=== PATIENT | female | born 1980 | race Caucasian/White ===

== ENCOUNTER 2022-11-20 14:52 | Emergency (ER) | payer OTHER, SELFPAY ==
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
[2022-11-20 15:00] VITALS: BP 134/88; PULSE 78; O2SAT 98
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
[2022-11-20 15:29] VITALS: BP 159/93; PULSE 77; RESP 18; TEMP 36.2; O2SAT 96; BMI 33.0
--- NOTE | 2022-11-20 15:35 | ECG_ITS ---
Test Reason : SYNCOPE Blood Pressure : / mmHG Vent. Rate : 073 BPM Atrial Rate : 073 BPM P-R Int : 156 ms QRS Dur : 084 ms QT Int : 396 ms P-R-T Axes : 075 055 049 degrees QTc Int : 436 ms Normal sinus rhythm Normal ECG No previous ECGs available Referred By: Stephanie Jeter Electronically Signed By:CARLOS LUGO
[2022-11-20 15:57] LABS: MANUAL DIFF FLAG NO
[2022-11-20 16:00] LABS: Basophils Absolute Auto 0.1 X10*3/uL (0.0-0.2); Basophils Percent Auto 0.8 % (0-2); Eosinophils Absolute Auto 0.3 X10*3/uL (0.0-0.4); Eosinophils Percent Auto 3.2 % (0-4); Hematocrit 44.9 % (37.0-47.0); Hemoglobin 15.1 g/dl (12.0-16.0); Imm Gran Abs Auto 0.03 X10*3/uL (0.00-0.03); Imm Gran Pct Auto 0.3 % (0.0-0.4); Lymphocytes Absolute Auto 1.7 X10*3/uL (1.2-4.9); Lymphocytes Percent Auto 18.3 % (20-40); Mean Corpuscular HGB Conc 33.6 g/dl (31.0-35.0); Mean Corpuscular Hemoglobin 31.3 pg (27.0-33.0); Mean Platelet Volume 9.7 fL (9.4-12.3); Monocytes Absolute Auto 0.4 X10*3/uL (0.1-1.2); Monocytes Percent Auto 3.9 % (2-11); Neutrophils Absolute Auto 6.7 x10*3/uL (2.0-8.3); Neutrophils Percent Auto 73.5 % (45-73); Platelet Count 288 X10*3/uL (160-400); Red Blood Count 4.83 X10*6/uL (4.20-5.50); Red Cell Distribution Width 12.1 % (11.0-16.0); White Blood Count 9.1 X10*3/uL (4.8-10.8)
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
[2022-11-20 16:17] LABS: Anion Gap 10 (12-20); Blood Urea Nitrogen 13 mg/dL (9-16); Calcium 9.2 mg/dL (8.4-10.2); Carbon Dioxide 22 mmol/L (22-29); Chloride 110 mmol/L (96-108); Creatinine Clr Calc Pharmacy 77.9; Estimated Glomerular Filt Rate > 60; Glucose Random 101 mg/dL (60-115); Potassium 4.4 mmol/L (3.3-5.1); Sodium 138 mmol/L (135-145)
[2022-11-20 16:34] LABS: Troponin-I High Sensitivity < 3.5 ng/L (<3.5-17.0)
[2022-11-20 18:32] VITALS: BP 138/77; PULSE 62; RESP 12; TEMP 36.8; O2SAT 98
--- NOTE | 2022-11-20 19:21 | PC.NURSE ---
Assumed care of pt. at 1900. Pt. resting quietly in bed at this time with significant other at bedside. Pt. requesting to urinate, however reports feeling dizzy and unsteady on feet. Provided pt. with commode and helped pt. on to urinate. Pt. reports pain 8-9/10 and sensitivity to light.
[2022-11-20] MEDS: Albuterol Sulfate (0.083%) 2.5 MG/3 ML VIAL.NEB INHALE ×3 (19:45→19:56)
[2022-11-20 19:57] VITALS: PULSE 62; RESP 12
== END 2022-11-20 20:22 | disposition home or self-care (01) ==
PROVIDERS: Nurse Practitioner Family; Emergency Provider Emergency Medicine
DX: S00.93XA Contusion of unspecified part of head, initial encounter (principal); R55 Syncope and collapse; R51.9 Headache, unspecified; M25.511 Pain in right shoulder; Y04.2XXA Assault by strike against or bumped into by another person, initial encounter; Y93.9 Activity, unspecified; Y92.009 Unspecified place in unspecified non-institutional (private) residence as the place of occurrence of the external cause; Y99.9 Unspecified external cause status; Z79.899 Other long term (current) drug therapy
CPT/HCPCS: 36415; 70450; 73030; 80048; 84484; 85025; 93005; 94640; 99284; 99285

== ENCOUNTER 2024-04-21 10:18 | Outpatient (REF) | payer MEDICAID, SELFPAY ==
[2024-04-21 14:25] LABS: MANUAL DIFF FLAG NO
[2024-04-21 14:29] LABS: Basophils Absolute Auto 0.1 X10*3/uL (0.0-0.2); Basophils Percent Auto 0.7 % (0-2); Eosinophils Absolute Auto 0.3 X10*3/uL (0.0-0.4); Hematocrit 41.6 % (37.0-47.0); Hemoglobin 13.8 g/dl (12.0-16.0); Imm Gran Abs Auto 0.04 X10*3/uL (0.00-0.03); Imm Gran Pct Auto 0.4 % (0.0-0.4); Lymphocytes Absolute Auto 1.7 X10*3/uL (1.2-4.9); Lymphocytes Percent Auto 18.1 % (20-40); Mean Corpuscular HGB Conc 33.2 g/dl (31.0-35.0); Mean Corpuscular Hemoglobin 31.7 pg (27.0-33.0); Mean Corpuscular Volume 95.6 fL (80.0-98.0); Monocytes Absolute Auto 0.6 X10*3/uL (0.1-1.2); Monocytes Percent Auto 5.8 % (2-11); Neutrophils Absolute Auto 6.8 x10*3/uL (2.0-8.3); Platelet Count 266 X10*3/uL (160-400); Red Blood Count 4.35 X10*6/uL (4.20-5.50); Red Cell Distribution Width 12.5 % (11.0-16.0); White Blood Count 9.4 X10*3/uL (4.8-10.8)
[2024-04-21 14:46] LABS: Alanine Aminotransferase 17 U/L (0-31); Alkaline Phosphatase 92 U/L (39-117); Anion Gap 11 (12-20); Aspartate Amino Transferase 16 U/L (5-31); Bilirubin Direct 0.1 mg/dL (0.0-0.5); Bilirubin Total 0.5 mg/dL (0.0-1.0); Blood Urea Nitrogen 13 mg/dL (9-16); Calcium 9.1 mg/dL (8.4-10.2); Carbon Dioxide 25 mmol/L (22-29); Chloride 106 mmol/L (96-108); Cholesterol 228 mg/dL (<200); Estimated Glomerular Filt Rate > 60; Glucose Fasting 93 mg/dL (60-99); HDL Cholesterol 37 mg/dL (>40); LDL Cholesterol Calculated 154 mg/dL (<100); Potassium 3.4 mmol/L (3.3-5.1); Sodium 139 mmol/L (135-145); Total Protein 7.2 g/dL (6.5-8.0); Triglycerides 186 mg/dL (<150)
[2024-04-21 15:08] LABS: TSH reflex Free T4 1.09 uIU/mL (0.32-4.0); Vitamin D 25-OH Total 41.3 ng/mL (>30)
[2024-04-21 15:14] LABS: Folate 6.6 ng/mL (> or = 4.0); Vitamin B12 392 pg/mL (200-900)
[2024-04-22 08:02] LABS: HBS Num1 8.37 mIU/mL (0-7.99); HIV AB/AG Nonreactive (Nonreactive); HIV Num 1 0.06 S/CO (0.00-0.99); ~HepC Num1 0.21 S/CO (0.00-0.79); ~Hepatitis C Antibody Nonreactive (Nonreactive)
[2024-04-22 11:14] LABS: HBS Num2 8.13 mIU/mL (0-7.99); HBS Num3 7.73 mIU/mL (0-7.99); ~Hepatitis B Surface Antibody GRAYZONE (Nonreactive)
[2024-04-22 17:38] LABS: CT PCR NOT DETECTED (Not Detect.); NG PCR NOT DETECTED (Not Detect.)
== END 2024-04-21 10:19 | disposition home or self-care (01) ==
LOC: HO.CHCLDS 10:18
PROVIDERS: Visit Provider Pediatrics
DX: Z00.00 Encounter for general adult medical examination without abnormal findings (principal); E55.9 Vitamin D deficiency, unspecified; Z90.49 Acquired absence of other specified parts of digestive tract
CPT/HCPCS: 36415; 80048; 80061; 80076; 82306; 82607; 82746; 84443; 85025; 86706; 86803; 87389; 87491; 87591

== ENCOUNTER 2024-10-06 16:50 | Emergency (ER) | payer MEDICAID, SELFPAY ==
--- NOTE | ~2024-10-06 | XR_ITS ---
EXAMINATION: XR CHEST CLINICAL INFORMATION: sob/cough COMPARISON: None available. TECHNIQUE: 2 views of the chest were obtained. FINDINGS: No significant abnormality is noted involving the heart, lungs, mediastinum, bony thorax or soft tissues. XR/XR chest 2V IMPRESSION: Unremarkable examination. Electronically signed by: Дмитрий Hackett DO 10/06/2024 07:25 PM [facility]
[2024-10-06 16:55] VITALS: BP 166/99; PULSE 78; O2SAT 98
--- NOTE | 2024-10-06 16:56 | ED_ITS ---
HPI - Chest Pain General Chief Complaint: Upper Respiratory Symptoms Stated Complaint: SWEETIE DISEASE, NAUSEA, PT GIVEN ZOFRAN Time Seen by Provider: 10/06/24 19:25 Source: patient Limitations: no limitations History of Present Illness ED Provider: Maty ingram PA-C HPI narrative: 44-year-old female with a history of asthma, seizure disorder, migraine, PTSD and bipolar who presents from [facility] primary care with asthma exacerbation and chest pain x1 week. Associated generalized malaise with myalgia, nasal congestion, and chest tightness. Subjective fevers. Related Data Previous Rx's ?Medication ?Instructions ?Recorded azithromycin 250 mg tablet 250 mg PO DAILY 4 days #4 tabs 10/06/24 prednisone 20 mg tablet 40 mg (2 x 20 mg) PO DAILY #8 tabs 10/06/24 Allergies Allergy/AdvReac Type Severity Reaction Status Date / Time Penicillins Allergy Hives Verified 10/06/24 17:07 Review of Systems 2 Review of Systems: Yes all other systems are reviewed and are negative Constitutional: Constitutional: Reports fever(s), Reports lethargy and Reports malaise Cardiovascular: Cardiovascular: Reports chest pain and Reports dyspnea Respiratory: Respiratory: Reports cough, Reports dyspnea and Reports wheezing Gastrointestinal: Gastrointestinal: Denies abdominal pain and Denies vomiting Allergic/Immunologic: Allergic/Immunologic: Reports wheezing PMFSH Past Medical History Attestation statement: The following information was validated with the patient. Medical History Asthma Bipolar 1 disorder Chronic post-traumatic stress disorder (PTSD) Migraines Seizure disorder Social History Social History Alcohol intake: current Alcohol intake frequency: a few times a month Alcohol type: hard liquor Substance Use Type: Marijuana Physical Exam 2 Vital Signs: Vital Signs: Last Vital Signs Temp 97.9 F 10/06/24 17:05 Pulse 81 10/06/24 17:05 Resp 18 10/06/24 17:05 BP 119/89 10/06/24 17:05 Pulse Ox 98 10/06/24 17:05 O2 Del Method Room Air 10/06/24 17:05 BMI result Body Mass Index 29.7 Const: Other: Alert, ill in appearance Orientation/consciousness: patient oriented x3 Resp: Other: Nonlabored respirations, scattered expiratory wheezes, active bronchospasm cough Cardio: Other: Normal peripheral perfusion Skin: Other: Warm dry no rash Neuro: General: patient oriented x3, no focal motor deficits and CN's II-XI intact bilaterally Psych: Other: Calm cooperative Course Course Course Narrative: This is a rapid medical exam performed by Maty Ingram PA-C. The patient is a 44-year-old female with a history of asthma, seizure disorder, migraine, PTSD and bipolar who presents from [facility] primary care with asthma exacerbation and chest pain x1 week. On exam, the patient is rhonchorous posterior davis, with the active bronchospasm cough. We will be screening basic labs, troponin, chest x-ray, viral panel and obtaining an EKG. Patient essentially was sent here for ACS rule out given concurrent chest pain. Patient received nebulized treatments prior to arrival, she feels improved, however I foresee her requiring additional treatment. The patient is stable and can return to the waiting room pending her full medical assessment. Medical Decision Making Medical Decision Making MDM Narrative: 44-year-old female with a history of asthma, seizure disorder, migraine, PTSD and bipolar who presents from [facility] primary care with asthma exacerbation and chest pain x1 week. Associated generalized malaise with myalgia, nasal congestion, and chest tightness. Subjective fevers. Problem: Asthma History: Per patient I have considered the following differential diagnoses: Asthma exacerbation, viral syndrome, bronchitis, pneumonia, ACS Plan: Patient was seen at primary care for asthma exacerbation, given concurrent chest discomfort, she was sent to the emergency room to rule out ACS. Her symptoms are not consistent with ACS, she is having chest tightness secondary to her asthma. We will be screening labs, trop, viral panel chest x- ray, EKG her symptoms are improved since receiving an updraft at her primary care's office. I have independently reviewed the following tests: Labs: No leukocytosis, not anemic, no electrolyte abnormality troponin negative, not EKG: Normal sinus rhythm, rate 80, no ischemic changes no ectopy Chest x-ray:IMPRESSION: Unremarkable examination. Lab Data 10/06/24 17:21 10/06/24 17:21 Labs: Lab Results 10/06/24 Range/Units 17:21 WBC 8.2 (4.8-10.8) X10*3/uL RBC 4.82 (4.20-5.50) X10*6/uL Hgb 15.2 (12.0-16.0) g/dl Hct 44.4 (37.0-47.0) % MCV 92.1 (80.0-98.0) fL MCH 31.5 (27.0-33.0) pg MCHC 34.2 (31.0-35.0) g/dl RDW 12.5 (11.0-16.0) % Plt Count 211 (160-400) X10*3/uL MPV 9.9 (9.4-12.3) fL Immature Gran % (Auto) 0.4 (0.0-0.4) % Neut % (Auto) 67.6 (45-73) % Lymph % (Auto) 23.1 (20-40) % [place] % (Auto) 4.5 (2-11) % Eos % (Auto) 3.7 (0-4) % Baso % (Auto) 0.7 (0-2) % Lymph # (Auto) 1.9 (1.2-4.9) X10*3/uL [place] # (Auto) 0.4 (0.1-1.2) X10*3/uL Eos # (Auto) 0.3 (0.0-0.4) X10*3/uL Baso # (Auto) 0.1 (0.0-0.2) X10*3/uL Abs Immat Gran (auto) 0.03 (0.00-0.03) X10*3/uL Absolute Neuts (auto) 5.6 (2.0-8.3) x10*3/uL Absolute Nucleated RBC 0.000 (0.0-0.012) X10*3/uL Nucleated RBC % (auto) 0.0 (0.0-0.2) /100WBC Sodium 139 (135-145) mmol/L Potassium 3.7 (3.3-5.1) mmol/L Chloride 110 H (96-108) mmol/L Carbon Dioxide 20 L (22-29) mmol/L Anion Gap 13 (12-20) BUN 10 (9-16) mg/dL Creatinine 0.78 (0.5-1.4) mg/dL Estim Creat Clear Calc 83.9 Estimated GFR > 60 Random Glucose 87 (60-115) mg/dL Calcium 9.2 (8.4-10.2) mg/dL Magnesium 2.1 (1.6-2.6) mg/dL Troponin I High Sens < 2.7 (<3.5-17.0) ng/L Beta HCG, Quant < 2 mIU/mL Influenza Type A (PCR) NEGATIVE (Negative) Influenza Type B (PCR) NEGATIVE (Negative) RSV RNA Qual (PCR) NEGATIVE (Negative) SARS-CoV-2 RNA (RT-PCR) NEGATIVE (Negative) Discharge Plan Discharge Clinical Impression: Bronchitis Patient Disposition: Home, Self-Care Instructions: Acute Bronchitis (ED) Additional Instructions: You are being treated for bronchitis. There was no pneumonia on your chest x- ray, there were no concerning changes on her EKG, all of your labs including a cardiac enzymes were normal. You were screened for flu, RSV and COVID, the viral panel was negative. Use your home breathing treatments as directed, take the steroid as directed, take the azithromycin as directed. You do not require any additional medication until tomorrow. Follow up with your primary care provider as needed. Prescriptions: New azithromycin 250 mg tablet 250 mg PO DAILY 4 Days Qty: 4 0RF Rx Instructions: start on day 2 of therapy prednisone 20 mg tablet 40 mg PO DAILY Qty: 8 0RF Print Language: Italian
--- NOTE | 2024-10-06 16:58 | ECG_ITS ---
Test Reason : UPPER RESP Blood Pressure : / mmHG Vent. Rate : 080 BPM Atrial Rate : 080 BPM P-R Int : 126 ms QRS Dur : 084 ms QT Int : 396 ms P-R-T Axes : 016 019 043 degrees QTc Int : 456 ms Normal sinus rhythm Normal ECG When compared to the previous EKG of No significant changes seen Referred By: Maty Chappell Electronically Signed By:SUMAYA GRIFFITHS MD
[2024-10-06 17:05] VITALS: BP 119/89; PULSE 81; RESP 18; TEMP 36.6; O2SAT 98; BMI 29.7
[2024-10-06 17:26] LABS: MANUAL DIFF FLAG NO
[2024-10-06 17:29] LABS: Basophils Absolute Auto 0.1 X10*3/uL (0.0-0.2); Basophils Percent Auto 0.7 % (0-2); Eosinophils Absolute Auto 0.3 X10*3/uL (0.0-0.4); Eosinophils Percent Auto 3.7 % (0-4); Hematocrit 44.4 % (37.0-47.0); Hemoglobin 15.2 g/dl (12.0-16.0); Imm Gran Abs Auto 0.03 X10*3/uL (0.00-0.03); Imm Gran Pct Auto 0.4 % (0.0-0.4); Lymphocytes Absolute Auto 1.9 X10*3/uL (1.2-4.9); Lymphocytes Percent Auto 23.1 % (20-40); Mean Corpuscular HGB Conc 34.2 g/dl (31.0-35.0); Mean Corpuscular Hemoglobin 31.5 pg (27.0-33.0); Mean Corpuscular Volume 92.1 fL (80.0-98.0); Mean Platelet Volume 9.9 fL (9.4-12.3); Monocytes Absolute Auto 0.4 X10*3/uL (0.1-1.2); Monocytes Percent Auto 4.5 % (2-11); Neutrophils Absolute Auto 5.6 x10*3/uL (2.0-8.3); Neutrophils Percent Auto 67.6 % (45-73); Platelet Count 211 X10*3/uL (160-400); Red Blood Count 4.82 X10*6/uL (4.20-5.50); Red Cell Distribution Width 12.5 % (11.0-16.0); White Blood Count 8.2 X10*3/uL (4.8-10.8)
[2024-10-06 17:55] LABS: Anion Gap 13 (12-20); Blood Urea Nitrogen 10 mg/dL (9-16); Calcium 9.2 mg/dL (8.4-10.2); Carbon Dioxide 20 mmol/L (22-29); Chloride 110 mmol/L (96-108); Creatinine Clr Calc Pharmacy 83.9; Estimated Glomerular Filt Rate > 60; Glucose Random 87 mg/dL (60-115); HCG Quantitative < 2 mIU/mL; Magnesium 2.1 mg/dL (1.6-2.6); Potassium 3.7 mmol/L (3.3-5.1); Sodium 139 mmol/L (135-145); Troponin-I High Sensitivity < 2.7 ng/L (<3.5-17.0)
[2024-10-06 18:13] LABS: Influenza A PCR NEGATIVE (Negative); Influenza B PCR NEGATIVE (Negative); Resp Syncy Virus RNA Qual PCR NEGATIVE (Negative); SARS COV2 PCR INHOUSE NEGATIVE (Negative)
[2024-10-06 19:23] VITALS: BP 141/79; PULSE 71; RESP 18; TEMP 36; O2SAT 98
[2024-10-06] MEDS: Azithromycin 500 MG TABLET PO (19:28)
[2024-10-06] MEDS: predniSONE 20 MG TABLET 40 MG PO (19:28)
[2024-10-06 19:42] VITALS: BP 141/79; PULSE 71; RESP 18; TEMP 36; O2SAT 98
== END 2024-10-06 19:43 | disposition home or self-care (01) ==
PROVIDERS: Physician Assistant Medical; Emergency Provider Emergency Medicine
DX: J40 Bronchitis, not specified as acute or chronic (principal); Z03.818 Encounter for observation for suspected exposure to other biological agents ruled out; R05.9 Cough, unspecified
CPT/HCPCS: 0241U; 36415; 71046; 80048; 83735; 84484; 84702; 85025; 93005; 99283

== ENCOUNTER → 2024-10-06 16:58 | Outpatient (BNV) | payer MEDICAID, SELFPAY | PROVIDERS: Emergency Provider Emergency Medicine; Visit Provider Internal Medicine Cardiovascular Disease | DX: R11.0 Nausea (principal) | CPT/HCPCS: 93010 ==